=== PATIENT | female | born 1980 | race Caucasian/White ===

== ENCOUNTER 2024-08-05 15:15 | Outpatient (OUT) | payer OTHER, SELFPAY ==
--- NOTE | 2024-08-05 15:28 | XR_ITS ---
The [address] [address] Patient Name: PHYLLIS LAROSE MRN: [id number] date: 1980 Sex: F Assigned Patient Location: [facility] Current Patient Location: Accession/Order Number: [id number] Exam Date: 08/05/2024 15:32 Report Date: 08/06/2024 07:43 At the request of: VALARIE ALCANTAR Procedure: XR pelvis 1-2V PROCEDURE: XR pelvis 1-2V COMPARISON: None. HISTORY: Sacroiliac Joint Disease, Low Back Pain FINDINGS: BONES:No fracture, acute abnormality, or significant arthropathy. Small corticated bone fragment along the superolateral left acetabulum likely represents a remote avulsion. Incomplete fusion of posterior elements of the first lumbar type vertebral body. The sacroiliac joints are normal SOFT TISSUES:Negative. No visible soft tissue swelling. EFFUSION:None visible. OTHER: Negative. XR/XR pelvis 1-2V IMPRESSION: No acute radiographic abnormality Electronically authenticated by: ALFRED PHIPPS Date: 08/06/2024 07:43
== END 2024-08-05 15:16 | disposition home or self-care (01) ==
PROVIDERS: PCP Family Medicine; Visit Provider Family Medicine
DX: M53.3 Sacrococcygeal disorders, not elsewhere classified (principal); M54.50 Low back pain, unspecified
CPT/HCPCS: 72170

== ENCOUNTER 2024-08-11 07:36 | Outpatient (OUT) | payer OTHER, SELFPAY ==
--- OUTSIDE RECORDS SUMMARY | 2024-08-11 07:43 | XMS_ITS | CCD ---
Author Organization [facility] Care Team Providers Care B[employer]ing [employer] Feeder Name Role Phone MD Valarie Segundo Primary Care Provider [phone] MD Frederic Walters Emergency Provider MD Valarie Segundo Primary Care Provider DO Tatiana Moffett Attending Provider Valarie Segundo MD Primary Care Provider [phone] Valarie Segundo Primary Care Unavailable Frederic Walters Admitting Unavailable Frederic Walters Attending Unavailable Tatiana Moffett Admitting Unavailable Tatiana Moffett Attending Unavailable Valarie Segundo Primary Care Unavailable Tatiana Moffett Attending Unavailable Valarie Segundo Primary Care Unavailable Tatiana Moffett Admitting Unavailable TATIANA MOFFETT Attending Unavailable TATIANA MOFFETT Attending Unavailable TATIANA MOFFETT Attending Unavailable VALARIE SEGUNDO Attending Unavailable Medications Current Medications Medication Drug Class(es) Dates Sig (Normalized) Sig (Original) cholecalciferol 0.025 mg oral capsule (2 sources) Vitamin D Start: 10-04-2023 take 1 capsule by mouth once daily Cholecalciferol (Vitamin D3) (Vitamin D3) 25 mcg (1,000 unit) Capsule Active 25 MCG PO Daily October 04, 2023 12:00am ibuprofen 200 mg oral capsule (2 sources) Nonsteroidal Anti-inflammatory Drug Start: 10-04-2023 take 600 mg by mouth every six hours Ibuprofen Active 600 MG PO Q6H October 04, 2023 12:00am levothyroxine sodium 0.125 mg oral tablet (8 sources) l-Thyroxine Start: 12-11-2022 take 1 tablet by mouth in the morning levothyroxine (Synthroid, Levoxyl) 125 MCG tablet Indications: Hypothyroidism, unspecified type (CMS/HCC) TAKE 1 TABLET BY MOUTH IN THE MORNING ON AN EMPTY STOMACH ON SUNDAY, SUNDAY, SUNDAY AND SUNDAY 48 tablet 1 09/05/2023 Active Start: 12-11-2022 take 1 tablet by una th once daily in the morning levothyroxine (Synthroid, Levoxyl) 137 MCG tablet Indications: Hypothyroidism, unspecified type (CMS/HCC) TAKE 1 TABLET BY MOUTH ON AN EMPTY STOMACH EVERY MORNING ON SUNDAY, SUNDAY AND SUNDAY 36 tablet 1 09/05/2023 Active Start: 12-11-2022 Levothyroxine Active MCG TABLET December 11, 2022 12:00am Start: 12-11-2022 Levothyroxine Active MCG TABLET December 11, 2022 12:00am Magnesium (2 sources) Start: 10-04-2023 take 250 mg by mouth once daily Magnesium Active 250 MG PO Daily October 04, 2023 12:00am Multiple Vitamin (multivitamin) capsule (1 source) take 1 capsule by mouth in the morning Multiple Vitamin (multivitamin) capsule Take 1 capsule by mouth in the morning. 0 Active Kuvtiwym-Cet-Sysf-Fa- Vit K-Lut (Multivitamin Women 50 Plus) 8 mg iron-400 mcg-50 mcg Tablet (2 sources) Start: 10-04-2023 take 1 tablet by mouth once daily Hyrbkfyy-Svm-Vnt n-Fa-Vit K-Lut (Multivitamin Women 50 Plus) 8 mg iron-400 mcg-50 mcg Tablet Active 1 TAB PO Daily October 04, 2023 12:00am traMADol hydrochloride 50 mg oral tablet (1 source) Opioid Agonist Start: 10-18-2023 take 50 mg by mouth every four hours Tramadol Active 50 MG PO Q4H 20 7 October 18, 2023 12:00am Vitamin B Complex (2 sources) Start: 10-04-2023 take 1 tablet by mouth once daily Vitamin B Complex Active 1 TAB PO Daily October 04, 2023 12:00am Completed/Discontinued Medications Medication Drug Class(es) Dates Sig (Normalized) Sig (Original) escitalopram 10 mg oral tablet (3 sources) Serotonin Reuptake Inhibitor Start: 12-11-2022 End: 10-04-2023 Escitalopram Oxalate Discontinued MG TABLET December 10, 2022 11:00pm October 04, 2023 9:18am ethinyl estradiol 0.02 mg / norethindrone acetate 1 mg oral tablet (4 sources) Estrogen Start: 07-12-2023 End: 11-05-2023 norethindrone-ethiny l estradiol (Jordin 10/13) 1-20 MG-MCG tablet Indications: General counseling and advice on contraceptive management Take 1 tablet by mouth in the morning. 21 tablet 12 07/12/2023 11/05/2023 Discontinued Start: 12-11-2022 take 0.05 ug by mout h once daily in the morning Norethindrone Ac-Eth Estradiol (Junel 10/13 ()) 1-20 mg-mcg tablet Active 1 TAB PO Every morning December 10, 2022 11:00pm Start: 12-11-2022 Norethindrone Ac-Eth Estradiol (Jordin 10/13 ()) 1-20 mg-mcg tablet Active TAB TABLET December 11, 2022 12:00am ondansetron 4 mg disintegrating oral tablet (3 sources) Serotonin-3 Receptor Antagonist Start: 12-11-2022 End: 10-04-2023 Ondansetron Discontinued 4 MG PO every 6 to 8 hours December 10, 2022 11:00pm October 04, 2023 9:19am Problems Active Problems Problem Classification Problem Date Documented Da te Episodic/Chronic Abdominal pain (3 sources) Abdominal pain; Translations: [Unspecified abdominal pain] Onset: 4 Resolved: 4 10-18-2023 Episodic Anxiety disorders (2 sources) Anxiety; Translations: [Anxiety disorder, unspecified] Onset: 3 05-29-2023 Chronic Asthma (1 source) Exercise-induced asthma; Translations: [Exercise induced bronchospasm] Onset: 3 05-29-2023 Chronic Diseases of white blood cells (4 sources) White blood cell count abnormal; Translations: [Disorder of white blood cells, unspecified] Onset: 6 05-29-2023 Chronic Malaise and fatigue (1 source) Fatigue; Translations: [Chronic fatigue, unspecified] Onset: 3 05-29-2023 Chronic Menstrual disorders (3 sources) Dysmenorrhea; Translations: [Dysmenorrhea, unspecified] Onset: 3 Resolved: 4 11-05-2023 Chronic Nausea and vomiting (4 sources) Vomiting; Translations: [Vomiting, unspecified] Onset: 4 12-11-2022 Episodic Other aftercare (1 source) Surgical follow-up; Translations: [Encounter for other specified surgical aftercare] 11-05-2023 Episodic Other eye disorders (1 source) Vitreous floaters; Translations: [Other vitreous opacities, unspecified eye] Onset: 3 05-29-2023 Chronic Other gastrointestinal disorders (4 sources) Diarrhea; Translations: [Diarrhea, unspecified] Onset: 4 12-11-2022 Episodic Other nervous system disorders (1 source) Other acute postprocedural pain; Translations: [Other acute postprocedural pain] Onset: 4 Episodic Other nutritional; endocrine; and metabolic disorders (1 source) Hypervitaminosis D; 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] Onset: 3 05-29-2023 Chronic Other upper respiratory disease (1 source) Seasonal allergy; Translations: [Other seasonal allergic rhinitis] Onset: 3 05-29-2023 Chronic Thyroid disorders (1 source) Acquired hypothyroidism; Translations: [Hypothyroidism, unspecified] Onset: 3 05-29-2023 Chronic Unclassified (1 source) Encounter for gynecological examination (general) (routine) without abnormal findings; Translations: [Encounter for gynecological examination (general) (routine) without abnormal findings] Onset: 4 Unclassified (1 source) Vomiting, unspecified; Translations: [Vomiting, unspecified] Onset: 3 Past or Other Problems Problem Classification Problem Date Documented Da te Episodic/Chronic Conditions associated with dizziness or vertigo (1 source) Dizziness; Translations: [Dizziness and giddiness] Onset: 05-29-2023 05-29-2023 Episodic Inflammatory diseases of female pelvic organs (1 source) Chronic vulvitis; Translations: [Subacute and chronic vulvitis] Onset: 05-29-2023 05-29-2023 Episodic Malaise and fatigue (1 source) Fatigue; Translations: [Other fatigue] Onset: 05-29-2023 05-29-2023 Episodic Other gastrointestinal disorders (1 source) Diarrhea, unspecified; Translations: [Diarrhea, unspecified] Onset: 12-11-2022 Episodic Other screening for suspected conditions (not mental disorders or infectious disease) (1 source) Mammography abnormal; Translations: [Other abnormal and inconclusive findings on diagnostic imaging of breast] Onset: 05-29-2023 05-29-2023 Episodic Otitis media and related conditions (1 source) Finding of fluid behind tympanic membrane; Translations: [Unspecified nonsuppurative otitis media, bilateral] Onset: 05-29-2023 05-29-2023 Episodic Results Test Name Value Interpretation Reference Range Facility HCG ( test) IA.rapi d Ql (U)Ordered By: Frederic Lopez on 10-18-2023 HCG ( test) Ql (U) Negative [facility] HCG,Urineon 10-18-2023 Beta HCG ( test) Ql (U) Negative Normal [facility] Comment on above: Result Comment: PERF ORMED BY: [place] [address] PATHOLOGIST ELECTRONICS TECHNICIAN APPRENTICE BIRGIT BAER M.D. Performed By: #### U HCG #### [address] Jaden 10-18-2023 L Specimen: [id number] Received: 10/18/23 Status: AMISHA Dee Num: [id number] Spec Type: Surgical Subm Dr: Tatiana Moffett DO Tissues: A Uterus w/ or w/o tubes ovaries except neoplastic or prolap (CERVIX, TUBES) Procedures: HE/12, Gross/Micro L5 Age/ Patient Sex Location Account Attending Physician Phyllis Larose 43/F [place] [id number] Tatiana Moffett DO SPEC NUM: [id number] RECD: 10/18/23 STATUS: KEVINKelly DEE NUM: [id number] ERICA: 10/18/[address]: Tatiana Moffett DO ENTERED: 10/18/[address]: SPEC TYPE: Surgical DEPT: S ORDERED: HE/12, Gross/Micro L5 ORDERED: HE/12, Gross/Micro L5 Pathological Diagnosis Uterus, bilateral fallopian tubes: Hysterectomy and bilateral salpingectomy: Fundus: - Serosal adhesions. - Benign inactive endometrium with no hyperplasia or malignancy or chronic endometritis. - Benign leiomyoma. Cervix: - Benign squamous and endocervical mucosa with patchy chronic inflammation. - Negative for dysplasia. Bilateral fallopian tubes: - Complete cross-sections of unremarkable fallopian tubes. Clinical Information Menorrhagia Gross Description Received in formalin labeled with the patient's name, date of and cervix, uterus, tubes is an 86 g, 8.7 x 5.5 x 5 cm uterus with attached bilateral fallopian tubes. The uterine serosa is connell-brown with dull red-brown foci throughout and white-august plaque-like adhesions along the fundic and anterior aspect. Additionally, along the left lateral posterior aspect is a 0.2 cm white-connell subserosal nodule. The cervix is 3.2 cm in diameter with a dull pink-connell ectocervical mucosa and focal sloughing. There is a 0.6 cm circular os and a discrete transition zone leading into a 3.3 cm long trabeculated endocervical canal. Specimen: [id number] Received: 10/18/23 Status: AMISHA Dee Num: [id number] Spec Type: Surgical Subm Dr: Tatiana Moffett DO Tissues: A Uterus w/ or w/o tubes ovaries except neoplastic or prolap (CERVIX, TUBES) Procedures: , Gross/Micro L5 Patient: Phyllis Larose [id number] (Continued) Specimen: [id number] Received: 10/18/23 (Continued) Gross Description (Continued) Signed (signature on file) Vicki Khanna MD 10/19/23 1133 Specimen: [id number] Received: 10/18/23 Status: AMISHA Dee Num: [id number] Spec Type: Surgical Subm Dr: Tatiana Moffett DO Tissues: A Uterus w/ or w/o tubes ovaries except neoplastic or prolap (CERVIX, TUBES) Procedures: Chalo/Gauri L5 Patient: Phyllis Larose [id number] (Continued) Specimen: [id number] Received: 10/18/23 (Continued) Gross Description (Continued) There is a deep anterior invagination suggestive of an anterior lower uterine segment scar. The endometrial cavity is 2.7 cm cornu to cornu by 4 cm fundus to lower uterine segment. The endometrium is 0.1 cm thick connell and velvety. The myometrium is 2.1 cm thick with a 0.4 cm diameter firm white-connell whorled well-circumscribed intramural nodule within the posterior wall. The right fallopian tube is 4.7 x 0.4 cm. The left fallopian tube is 5.5 x 0.4 cm. Bilaterally, the serosa is purple-connell and glistening. Sectioning demonstrates central lumens. The fimbria are scant, but unremarkable.. Coin Collector sections are submitted in 7 cassettes as follows: A1 - Serosa (posterior cul-de-sac with red-brown foci, subserosal nodule, and august adhesions) A2 - Anterior and posterior cervix A3 - Anterior lower uterine segment scar A4 - Anterior endomyometrium A5 - Posterior endomyometrium with intramural nodule A6 - Right fallopian tube with fimbria entirely submitted A7 - Left fallopian tube with fimbria entirely submitted CPT Codes 97059 Specimen: [id number] Received: 10/18/23 Status: AMISHA Dee Num: [id number] Spec Type: Surgical Subm Dr: Tatiana Moffett,DO Tissues: A Uterus w/ or w/o tubes ovaries except neoplastic or prolap (CERVIX, TUBES) Procedures: , Gross/Micro L5 Patient: LoreePhyllis [id number] (more content not included)... Normal [facility] Activated partial thrombopla stin time (aPTT) in platelet poor plasma by coagulation aOrdered By: Tatiana Moffett on 10-04-2023 aPTT Coag (PPP) [Time] 28.6 s 25.1-36.5 [facility] Comment on above: A hematocrit value g reater than 55% may lead to inaccurate results in coagulation testing. Patients having hematocrit values >55% require a special collection tube for coagulation studies. Please contact the laboratory at [phone] for redraw instructions. Alanine aminotransferase [En zymatic activity/volume] in Serum or PlasmaOrdered By: Tatiana Moffett on 10-04-2023 ALT [Catalytic activity/Vol] 35 U/L 7-[address] [facility] Albumin [Mass/volume] in Ser um or Plasma by Bromocresol green (BCG) dye binding methoOrdered By: Tatiana Moffett on 10-04-2023 Albumin BCG dye [Mass/Vol] 4.4 g/dL 3.5-5.[address] [facility] Alkaline phosphatase [Enzyma tic activity/volume] in Serum or PlasmaOrdered By: Tatiana Moffett on 10-04-2023 ALP [Catalytic activity/Vol] 33 U/L 34-[address] [facility] Aspartate aminotransferase [ Enzymatic activity/volume] in Serum or PlasmaOrdered By: Tatiana Moffett on 10-04-2023 AST [Catalytic activity/Vol] 27 U/L 13-[address] [facility] Basophils Auto (Bld) [#/Vol] Ordered By: Tatiana Moffett on 10-04-2023 Basophils (Bld) [#/Vol] 0.0 10*3/uL 0.0-0.[address] [facility] Basophils/100 WBC Auto (Bld) Ordered By: Tatiana Moffett on 10-04-2023 Basophils/100 WBC (Bld) 0.9 % . [facility] Bilirubin Test strip Ql (U)O rdered By: Tatiana Moffett on 10-04-2023 Bilirubin Ql (U) Negative Negative [facility] Bilirubin.total [Mass/volume ] in Serum or PlasmaOrdered By: Tatiana Moffett on 10-04-2023 Bilirubin [Mass/Vol] 0.6 mg/dL 0.3-1.0 [facility] Calcium [Mass/volume] in Ser um or PlasmaOrdered By: Tatiana Moffett on 10-04-2023 Calcium [Mass/Vol] 9.2 mg/dL 8.6-10.3 [facility] Carbon dioxide, total [Moles /volume] in Serum or PlasmaOrdered By: Tatiana Moffett on 10-04-2023 CO2 [Moles/Vol] 27.8 mmol/L 21.0-31.0 [facility] Chloride [Moles/volume] in S kahlil or PlasmaOrdered By: Tatiana Moffett on 10-04-2023 Chloride [Moles/Vol] 104 mmol/L 98-107 [facility] Color Auto (U)Ordered By: Peggy Moffett on 10-04-2023 Color (U) Yellow Yellow [facility] Complete Blood Count Auto Di ffon 10-04-2023 Basophils (Bld) [#/Vol] 0.0 10*3/uL Normal 0.0-0.[address] [facility] Comment on above: Result Comment: PERF ORMED BY: [facility] [address] [place] [address] PATHOLOGIST ELECTRONICS TECHNICIAN APPRENTICE BIRGIT BAER M.D. Performed By: #### P TT, CBC, PT, CMP #### [address] Basophils/100 WBC (Bld) 0.9 % Normal . [facility] Comment on above: Performed By: #### P TT, CBC, PT, CMP #### [address] Eosinophils (Bld) [#/Vol] 0.1 10*3/uL Normal 0.0-0.[address] [facility] Comment on above: Performed By: #### P TT, CBC, PT, CMP #### [address] Eosinophils/100 WBC (Bld) 2.1 % Normal . [facility] Comment on above: Performed By: #### P TT, CBC, PT, CMP #### [address] Erythrocyte distribution width (RBC) [Ratio] 13.3 % Normal 11.9-15.[address] [facility] Comment on above: Performed By: #### P TT, CBC, PT, CMP #### [address] Hematocrit (Bld) [Volume fraction] 40.0 % Normal 34.0-46.[address] [facility] Comment on above: Performed By: #### P TT, CBC, PT, CMP #### [address] Hemoglobin (Bld) [Mass/Vol] 13.2 g/dL Normal 11.8-15.[address] [facility] Comment on above: Performed By: #### P TT, CBC, PT, CMP #### [address] Lymphocytes (Bld) [#/Vol] 1.3 10*3/uL Normal 1.00-4.[address] [facility] Comment on above: Performed By: #### P TT, CBC, PT, CMP #### [address] Lymphocytes/100 WBC (Bld) 26.1 % Normal . [facility] Comment on above: Performed By: #### P TT, CBC, PT, CMP #### [place] [address] MCH (RBC) [Entitic mass] 28.0 pg Normal 24.7-34.[address] [facility] Comment on above: Performed By: #### P TT, CBC, PT, CMP #### [address] MCV (RBC) [Entitic vol] 84.6 fL Normal 80-[address] [facility] Comment on above: Performed By: #### P TT, CBC, PT, CMP #### [address] Mean Corpuscular HGB Conc 33.1 g/dL Normal 32.0-35.[address] [facility] Comment on above: Performed By: #### P TT, CBC, PT, CMP #### [address] Monocytes (Bld) [#/Vol] 0.5 10*3/uL Normal 0.0-0.[address] [facility] Comment on above: Performed By: #### P TT, CBC, PT, CMP #### [address] Monocytes/100 WBC (Bld) 9.6 % Normal . [facility] Comment on above: Performed By: #### P TT, CBC, PT, CMP #### [address] Neutrophils (Bld) [#/Vol] 3.0 10*3/uL Normal 1.8-7.[address] [facility] Comment on above: Performed By: #### P TT, CBC, PT, CMP #### [address] Neutrophils/100 WBC (Bld) 61.3 % Normal . [facility] Comment on above: Performed By: #### P TT, CBC, PT, CMP #### [address] NRBC% 0.0 /100{WBC} Normal 0-0.[address] [facility] Comment on above: Performed By: #### P TT, CBC, PT, CMP #### [address] Platelet mean volume (Bld) [Entitic vol] 7.8 fL Normal 6.3-10.[address] [facility] Comment on above: Performed By: #### P TT, CBC, PT, CMP #### [address] Platelets (Bld) [#/Vol] 271 10*3/uL Normal 150-[address] [facility] Comment on above: Performed By: #### P TT, CBC, PT, CMP #### [address] RBC (Bld) [#/Vol] 4.72 10*6/uL Normal 3.60-5.00 [facility] Comment on above: Performed By: #### P TT, CBC, PT, CMP #### [address] WBC (Bld) [#/Vol] 4.9 10*3/uL Normal 3.8-11.6 [facility] Comment on above: Performed By: #### P TT, CBC, PT, CMP #### [address] Comprehensive Metabolic Pane jaden 10-04-2023 Albumin [Mass/Vol] 4.4 g/dL Normal 3.5-5.7 [facility] Comment on above: Performed By: #### P TT, CBC, PT, CMP #### [address] Albumin/Globulin [Mass ratio] 1.6 {ratio} Normal [facility] Comment on above: Performed By: #### P TT, CBC, PT, CMP #### [address] ALP [Catalytic activity/Vol] 33 U/L Low 34-[address] [facility] Comment on above: Result Comment: PERF ORMED BY: [place] [address] PATHOLOGIST ELECTRONICS TECHNICIAN APPRENTICE BIRGIT BAER M.D. Performed By: #### P TT, CBC, PT, CMP #### [facility] [address] ALT [Catalytic activity/Vol] 35 U/L Normal 7-[address] [facility] Comment on above: Performed By: #### P TT, CBC, PT, CMP #### [facility] [address] Anion gap [Moles/Vol] 10.8 mmol/L Normal 6.0-15.0 [facility] Comment on above: Performed By: #### P TT, CBC, PT, CMP #### [address] AST [Catalytic activity/Vol] 27 U/L Normal 13-[address] [facility] Comment on above: Performed By: #### P TT, CBC, PT, CMP #### [address] Bilirubin [Mass/Vol] 0.6 mg/dL Normal 0.3-1.0 [facility] Comment on above: Performed By: #### P TT, CBC, PT, CMP #### [address] Calcium [Mass/Vol] 9.2 mg/dL Normal 8.6-10.3 [facility] Comment on above: Performed By: #### P TT, CBC, PT, CMP #### [place] [address] [place] Chloride [Moles/Vol] 104 mmol/L Normal 98-107 [facility] Comment on above: Performed By: #### P TT, CBC, PT, CMP #### [place] [address] [place] CO2 [Moles/Vol] 27.8 mmol/L Normal 21.0-31.0 [facility] Comment on above: Performed By: #### P TT, CBC, PT, CMP #### [place] [address] [place] Creatinine [Mass/Vol] 0.86 mg/dL Normal 0.60-1.20 [facility] Comment on above: Performed By: #### P TT, CBC, PT, CMP #### [facility] [address] [place] [address] [place] GFR/1.73 sq M.predicted MDRD (S/P/Bld) [Vol rate/Area] mL/min/{1.73_m2} [facility] Comment on above: Performed By: #### P TT, CBC, PT, CMP #### [facility] [address] [place] [address] [place] Globulin (S) [Mass/Vol] 2.8 g/dL Normal [facility] Comment on above: Performed By: #### P TT, CBC, PT, CMP #### [address] Glucose [Mass/Vol] 77 mg/dL Normal 70-100 [facility] Comment on above: Result Comment: [place] Glucose Reference Range is dependent on time and content of last meal. Glucose of more than 200 mg/dL in a nonstressed, ambulatory subject supports the diagnosis of Diabetes Mellitus. ADA recommended reference range Performed By: #### P TT, CBC, PT, CMP #### [place] [address] [place] Potassium [Moles/Vol] 4.6 mmol/L Normal 3.5-5.1 [facility] Comment on above: Performed By: #### P TT, CBC, PT, CMP #### [place] [address] [place] Protein [Mass/Vol] 7.2 g/dL Normal 6.4-8.9 [facility] Comment on above: Performed By: #### P TT, CBC, PT, CMP #### [place] [address] [place] Sodium [Moles/Vol] 138 mmol/L Normal 136-145 [facility] Comment on above: Performed By: #### P TT, CBC, PT, CMP #### [address] [address] [place] Urea nitrogen [Mass/Vol] 10 mg/dL Normal 7-[address] [facility] Comment on above: Performed By: #### P TT, CBC, PT, CMP #### [facility] [address] Creatinine [Mass/volume] in Serum or PlasmaOrdered By: Tatiana Moffett on 10-04-2023 Creatinine [Mass/Vol] 0.86 mg/dL 0.60-1.20 [facility] Eosinophils Auto (Bld) [#/Vo l]Ordered By: Tatiana Moffett on 10-04-2023 Eosinophils (Bld) [#/Vol] 0.1 10*3/uL 0.0-0.[address] [facility] Eosinophils/100 WBC Auto (Bl d)Ordered By: Tatiana Moffett on 10-04-2023 Eosinophils/100 WBC (Bld) 2.1 % . [facility] Erythrocyte distribution wid th Auto (RBC) [Ratio]Ordered By: Tatiana Moffett on 10-04-2023 Erythrocyte distribution width (RBC) [Ratio] 13.3 % 11.9-15.[address] [facility] Globulin Calc (S) [Mass/Vol] Ordered By: Tatiana Moffett on 10-04-2023 Globulin (S) [Mass/Vol] 2.8 g/dL [facility] Glucose [Mass/volume] in Ser um or PlasmaOrdered By: Tatiana Moffett on 10-04-2023 Glucose [Mass/Vol] 77 mg/dL 70-100 [facility] Comment on above: ADA recommended refe rence rangeRandom Glucose Reference Range is dependent on time and content of last meal. Glucose of more than 200 mg/dL in a nonstressed, ambulatory subject supports the diagnosis of Diabetes Mellitus. Hematocrit Auto (Bld) [Volum e fraction]Ordered By: Tatiana Moffett on 10-04-2023 Hematocrit (Bld) [Volume fraction] 40.0 % 34.0-46.[address] [facility] Hemoglobin [Mass/volume] in BloodOrdered By: Tatiana Moffett on 10-04-2023 Hemoglobin (Bld) [Mass/Vol] 13.2 g/dL 11.8-15.[address] [facility] INR in Platelet poor plasma by Coagulation assayOrdered By: Tatiana Moffett on 10-04-2023 INR Coag (PPP) [Relative time] 1.0 {INR} [facility] Comment on above: INR Therapeutic Rang e A) Pre- and Peroperative OAT started two weeks before surgery. NOT HIP SURGERY: 1.5 - 2.5 HIP SURGERY: 2 - 3B) Primary and secondary prevention of venous THROMBOSIS: 2 - 3C) Active venous thrombosis, pulmonary embolismand prevention of recurrent venous thrombosis: 2 - 3D) Prevention of arterial thromboembolismincluding patients with mechanical heart valves: 3 - 4.5 Ketones Auto test strip (U) [Mass/Vol]Ordered By: Tatiana Moffett on 10-04-2023 Ketones (U) [Mass/Vol] Negative Negative Fi [facility] Leukocytes [#/volume] correc elham for nucleated erythrocytes in Blood by Automated counOrdered By: Tatiana Moffett on 10-04-2023 WBC corrected for nucl RBC Auto (Bld) [#/Vol] 4.9 10*3/uL 3.8-11.[address] [facility] Lymphocytes Auto (Bld) [#/Vo l]Ordered By: Tatiana Moffett on 10-04-2023 Lymphocytes (Bld) [#/Vol] 1.3 10*3/uL 1.00-4.[address] [facility] Lymphocytes/100 WBC Auto (Bl d)Ordered By: Tatiana Moffett on 10-04-2023 Lymphocytes/100 WBC (Bld) 26.1 % . [facility] MCH Auto (RBC) [Entitic mass ]Ordered By: Tatiana Moffett on 10-04-2023 MCH (RBC) [Entitic mass] 28.0 pg 24.7-34.[address] [facility] MCHC Auto (RBC) [Mass/Vol]Or dered By: Tatiana Moffett on 10-04-2023 MCHC (RBC) [Mass/Vol] 33.1 g/dL 32.0-35.0 [facility] MCV Auto (RBC) [Entitic vol] Ordered By: Tatiana Moffett on 10-04-2023 MCV (RBC) [Entitic vol] 84.6 fL 80-[address] [facility] Monocytes Auto (Bld) [#/Vol] Ordered By: Tatiana Moffett on 10-04-2023 Monocytes (Bld) [#/Vol] 0.5 10*3/uL 0.0-0.[address] [facility] Monocytes/100 WBC Auto (Bld) Ordered By: Tatiana Moffett on 10-04-2023 Monocytes/100 WBC (Bld) 9.6 % . [facility] Neutrophils Auto (Bld) [#/Vo l]Ordered By: Tatiana Moffett on 10-04-2023 Neutrophils (Bld) [#/Vol] 3.0 10*3/uL 1.8-7.[address] [facility] Neutrophils/100 WBC Auto (Bl d)Ordered By: Tatiana Moffett on 10-04-2023 Neutrophils/100 WBC (Bld) 61.3 % . [facility] Nitrite Test strip Ql (U)Ord ered By: Tatiana Moffett on 10-04-2023 Nitrite Ql (U) Negative Negative [facility] No Panel InformationOrdered By: Tatiana Moffett on 10-04-2023 Estimated GFR (CKD-EPI) > 60.0 mL/Min [facility] Creatinine Clearance (Chem N/A [facility] Nucleated erythrocytes [Pres ence] in Blood by Automated countOrdered By: Tatiana Moffett on 10-04-2023 Nucleated RBC Auto Ql (Bld) 0.0 /100{WBC} 0-0.[address] [facility] PST Type and Screenon 2023 ABO and Rh group Nom (Bld) Blood group A Rh(D) negative Normal [facility] Comment on above: Order Comment: Date of Surgery: [id number] Result Comment: PERF ORMED BY: [facility] [address] [address] PATHOLOGIST ELECTRONICS TECHNICIAN APPRENTICE BIRGIT BAER M.D. Partial Thromboplastin Timeo n 10-04-2023 aPTT Coag (Bld) [Time] 28.6 s Normal 25.1-36.5 [facility] Comment on above: Result Comment: A he matocrit value greater than 55% may lead to inaccurate results in coagulation testing. Patients having hematocrit values >55% require a special collection tube for coagulation studies. Please contact the laboratory at [phone] for redraw instructions. PERFORMED BY: [place] [address] PATHOLOGIST ELECTRONICS TECHNICIAN APPRENTICE BIRGIT BAER M.D. Performed By: #### P TT, CBC, PT, CMP #### [facility] [address] Platelet mean volume Auto (B ld) [Entitic vol]Ordered By: Tatiana Moffett on 10-04-2023 Platelet mean volume (Bld) [Entitic vol] 7.8 fL 6.3-10.[address] [facility] Platelets Auto (Bld) [#/Vol] Ordered By: Tatiana Moffett on 10-04-2023 Platelets (Bld) [#/Vol] 271 10*3/uL 150-[address] [facility] Potassium [Moles/volume] in Serum or PlasmaOrdered By: Tatiana Moffett on 10-04-2023 Potassium [Moles/Vol] 4.6 mmol/L 3.5-5.1 [facility] Protein Auto test strip (U) [Mass/Vol]Ordered By: Tatiana Moffett on 10-04-2023 Protein (U) [Mass/Vol] Negative Negative [facility] Protein [Mass/volume] in Ser um or PlasmaOrdered By: Tatiana Moffett on 10-04-2023 Protein [Mass/Vol] 7.2 g/dL 6.4-8.9 [facility] Prothrombin Time INRon 10-04 INR Coag (PPP) [Relative time] 1.0 {INR} Normal [facility] Comment on above: Result Comment: INR Therapeutic Range A) Pre- and Peroperative OAT started two weeks before surgery. NOT HIP SURGERY: 1.5 - 2.5 HIP SURGERY: 2 - 3 B) Primary and secondary prevention of venous THROMBOSIS: 2 - 3 C) Active venous thrombosis, pulmonary embolism and prevention of recurrent venous thrombosis: 2 - 3 D) Prevention of arterial thromboembolism including patients with mechanical heart valves: 3 - 4.5 Performed By: #### P TT, CBC, PT, CMP #### [facility] [address] [place], [place] [id number] [facility] PT Coag (PPP) [Time] 11.4 s Normal 9.0-12.9 [facility] Comment on above: Result Comment: A he matocrit value greater than 55% may lead to inaccurate results in coagulation testing. Patients having hematocrit values >55% require a special collection tube for coagulation studies. Please contact the laboratory at [phone] for redraw instructions. Performed By: #### P TT, CBC, PT, CMP #### [facility] [address] Prothrombin time (PT)Ordered By: Tataina Moffett on 10-04-2023 PT Coag (PPP) [Time] 11.4 s 9.0-12.9 [facility] Comment on above: A hematocrit value g reater than 55% may lead to inaccurate results in coagulation testing. Patients having hematocrit values >55% require a special collection tube for coagulation studies. Please contact the laboratory at [phone] for redraw instructions. RBC Auto (Bld) [#/Vol]Ordere d By: Tatiana Moffett on 10-04-2023 RBC (Bld) [#/Vol] 4.72 10*6/uL 3.60-5.00 [facility] Serum or plasma albumin/glob ulin mass ratioOrdered By: Tatiana Moffett on 10-04-2023 Albumin/Globulin [Mass ratio] 1.6 {ratio} [facility] Serum or plasma anion gap de terminationOrdered By: Tatiana Moffett on 10-04-2023 Anion gap [Moles/Vol] 10.8 mmol/L 6.0-15.0 [facility] Sodium [Moles/volume] in Ser um or PlasmaOrdered By: Tatiana Moffett on 10-04-2023 Sodium [Moles/Vol] 138 mmol/L 136-145 [facility] Specific gravity Auto test s trip (U) [Rel density]Ordered By: Tatiana Moffett on 10-04-2023 Specific gravity (U) [Rel density] 1.006 1.001-1.[address] [facility] Urea nitrogen [Mass/volume] in Serum or PlasmaOrdered By: Tatiana Moffett on 10-04-2023 Urea nitrogen [Mass/Vol] 10 mg/dL 7-[address] [facility] Urinalysison 10-04-2023 Appearance (U) Clear Normal Clear [facility] Comment on above: Order Comment: Name Collection Type:: Clean-Voided Midstream Performed By: #### U A #### [facility] [address] [place] [address] [place] Bilirubin,Urine Negative Normal Negative [facility] Comment on above: Order Comment: Name Collection Type:: Clean-Voided Midstream Performed By: #### U A #### [facility] [address] [place] [address] [place] Color (U) Yellow Normal Yellow [facility] Comment on above: Order Comment: Name Collection Type:: Clean-Voided Midstream Performed By: #### U A #### [facility] [address] [place] [address] [place] Glucose Ql (U) Normal Normal Normal [facility] Comment on above: Order Comment: Name Collection Type:: Clean-Voided Midstream Performed By: #### U A #### [facility] [address] [place] [address] [place] Ketones Ql (U) Negative Normal Negative [facility] Comment on above: Order Comment: Name Collection Type:: Clean-Voided Midstream Performed By: #### U A #### [facility] [address] [place] [address] Leukocyte esterase Test strip Ql (U) Negative Normal Negative [facility] Comment on above: Order Comment: Name Collection Type:: Clean-Voided Midstream Performed By: #### U A #### [facility] [address] [place] [address] [place] Nitrite,Urine Negative Normal Negative [facility] Comment on above: Order Comment: Name Collection Type:: Clean-Voided Midstream Performed By: #### U A #### [facility] [address] [place] [address] [place] Occult Blood,Urine Negative Normal Negative [facility] Comment on above: Order Comment: Name Collection Type:: Clean-Voided Midstream Result Comment: PERF ORMED BY: [place] [address] PATHOLOGIST ELECTRONICS TECHNICIAN APPRENTICE BIRGIT BAER M.D. Performed By: #### U A #### [facility] [address] pH (U) 7.0 [pH] Normal 5.0-9.[address] [facility] Comment on above: Order Comment: Name Collection Type:: Clean-Voided Midstream Performed By: #### U A #### [facility] [address] [place] [address] Protein,Urine Negative Normal Negative [facility] Comment on above: Order Comment: Name Collection Type:: Clean-Voided Midstream Performed By: #### U A #### [address] Specificy [place],Urine 1.006 Normal 1.001-1.[address] [facility] Comment on above: Order Comment: Name Collection Type:: Clean-Voided Midstream Performed By: #### U A #### [facility] [address] [place] [address] Urobilinogen,Urine Normal Normal Normal [facility] Comment on above: Order Comment: Name Collection Type:: Clean-Voided Midstream Performed By: #### U A #### [facility] [address] [place] [address] Urine clarity by refractomet ry automatedOrdered By: Tatiana Moffett on 10-04-2023 Clarity Refractometry automated (U) Clear Clear [facility] Urine glucose measurement by automated test strip (mass/volume)Ordered By: Tatiana Moffett on 10-04-2023 Glucose Auto test strip (U) [Mass/Vol] Normal mg/dL Normal [facility] Urine hemoglobin detection b y automated test stripOrdered By: Tatiana Moffett on 10-04-2023 Hemoglobin Auto test strip Ql (U) Negative Negative [facility] Urine leukocyte esterase det ection by automated test stripOrdered By: Tatiana Moffett on 10-04-2023 Leukocyte esterase Auto test strip Ql (U) Negative Negative [facility] Urobilinogen Auto test strip (U) [Mass/Vol]Ordered By: Tatiana Moffett on 10-04-2023 Urobilinogen (U) [Mass/Vol] Normal mg/dL Normal [facility] WBC Auto (Bld) [#/Vol]Ordere d By: Tatiana Moffett on 10-04-2023 WBC (Bld) [#/Vol] 4.9 10*3/uL 3.8-11.6 [facility] pH Auto test strip (U)Ordere d By: Tatiana Moffett on 10-04-2023 pH (U) 7.0 [pH] 5.0-9.[address] [facility] Alanine aminotransferase [En zymatic activity/volume] in Serum or PlasmaOrdered By: Frederic Walters on 12-11-2022 ALT [Catalytic activity/Vol] 29 U/L 7-[address] [facility] Albumin [Mass/volume] in Ser um or Plasma by Bromocresol green (BCG) dye binding methoOrdered By: Frederic Walters on 12-11-2022 Albumin BCG dye [Mass/Vol] 4.4 g/dL 3.5-5.[address] [facility] Alkaline phosphatase [Enzyma tic activity/volume] in Serum or PlasmaOrdered By: Frederic Walters on 12-11-2022 ALP [Catalytic activity/Vol] 33 U/L 34-[address] [facility] Aspartate aminotransferase [ Enzymatic activity/volume] in Serum or PlasmaOrdered By: Frederic Walters on 12-11-2022 AST [Catalytic activity/Vol] 22 U/L 13-[address] [facility] Basic Metabolic Panelon 11-23 Anion gap [Moles/Vol] 13.7 mmol/L Normal 6.0-15.0 [facility] Comment on above: Performed By: #### L IPASE, CBC, BMP, HEPATIC ####[facility] [id number] [place] [address] [facility] Calcium [Mass/Vol] 8.7 mg/dL Normal 8.6-10.3 [facility] Comment on above: Performed By: #### L IPASE, CBC, BMP, HEPATIC ####[facility] [id number] [place] [address] [facility] Chloride [Moles/Vol] 106 mmol/L Normal 98-107 [facility] Comment on above: Performed By: #### L IPASE, CBC, BMP, HEPATIC ####[facility] [id number] [place] [address] [facility] CO2 [Moles/Vol] 22.5 mmol/L Normal 21.0-31.0 [facility] Comment on above: Performed By: #### L IPASE, CBC, BMP, HEPATIC ####[facility] [place] [address] [facility] Creatinine [Mass/Vol] 0.96 mg/dL Normal 0.60-1.20 [facility] Comment on above: Performed By: #### L IPASE, CBC, BMP, HEPATIC ####[place] [address] [place] [address] [place] Creatinine Clr Calc Pharmacy 77.03 [facility] Comment on above: Performed By: #### L IPASE, CBC, BMP, HEPATIC ####[place] [address] [place] [address] [facility] GFR/1.73 sq M.predicted MDRD (S/P/Bld) [Vol rate/Area] mL/min/{1.73_m2} [facility] Comment on above: Performed By: #### L IPASE, CBC, BMP, HEPATIC ####[place] [address] [place] [address] [facility] Glucose [Mass/Vol] 129 mg/dL High 74-109 [facility] Comment on above: Result Comment: [place] Glucose Reference Range is dependent on time and content of last meal. Glucose of more than 200 mg/dL in a nonstressed, ambulatory subject supports the diagnosis of Diabetes Mellitus. ADA recommended reference range Performed By: #### L IPASE, CBC, BMP, HEPATIC ####[place] [place] [address] [place] Potassium [Moles/Vol] 4.2 mmol/L Normal 3.5-5.1 [facility] Comment on above: Performed By: #### L IPASE, CBC, BMP, HEPATIC ####[facility] [place] [address] [place] Sodium [Moles/Vol] 138 mmol/L Normal 136-145 [facility] Comment on above: Performed By: #### L IPASE, CBC, BMP, HEPATIC ####[facility] [id number] [place] [id number] [facility] Urea nitrogen [Mass/Vol] 14 mg/dL Normal 7-[address] [facility] Comment on above: Performed By: #### L IPASE, CBC, BMP, HEPATIC ####[facility] [id number] [place] [id number] [facility] Basophils Auto (Bld) [#/Vol] Ordered By: Frederic Walters on 12-11-2022 Basophils (Bld) [#/Vol] 0.0 10*3/uL 0.0-0.[address] [facility] Basophils/100 WBC Auto (Bld) Ordered By: Frederic Walters on 12-11-2022 Basophils/100 WBC (Bld) 0.7 % . [facility] Bilirubin.direct [Mass/volum e] in Serum or PlasmaOrdered By: Frederic Walters on 12-11-2022 Bilirubin.direct [Mass/Vol] 0.10 mg/dL 0.03-0.[address] [facility] Bilirubin.total [Mass/volume ] in Serum or PlasmaOrdered By: Frederic Walters on 12-11-2022 Bilirubin [Mass/Vol] 1.0 mg/dL 0.3-1.0 [facility] Calcium [Mass/volume] in Ser um or PlasmaOrdered By: Frederic Walters on 12-11-2022 Calcium [Mass/Vol] 8.7 mg/dL 8.6-10.3 [facility] Carbon dioxide, total [Moles /volume] in Serum or PlasmaOrdered By: Frederic Walters on 12-11-2022 CO2 [Moles/Vol] 22.5 mmol/L 21.0-31.0 [facility] Chloride [Moles/volume] in S kahlil or PlasmaOrdered By: Frederic Walters on 12-11-2022 Chloride [Moles/Vol] 106 mmol/L 98-107 [facility] Complete Blood Count Auto Di ffon 12-11-2022 Basophils (Bld) [#/Vol] 0.0 10*3/uL Normal 0.0-0.[address] [facility] Comment on above: Result Comment: PERF ORMED BY: [place] [address] PATHOLOGIST ELECTRONICS TECHNICIAN APPRENTICE BIRGIT BAER M.D. Performed By: #### L IPASE, CBC, BMP, HEPATIC #### [address] Basophils/100 WBC (Bld) 0.7 % Normal . [facility] Comment on above: Performed By: #### L IPASE, CBC, BMP, HEPATIC #### [address] Eosinophils (Bld) [#/Vol] 0.0 10*3/uL Normal 0.0-0.[address] [facility] Comment on above: Performed By: #### L IPASE, CBC, BMP, HEPATIC #### [address] Eosinophils/100 WBC (Bld) 0.1 % Normal . [facility] Comment on above: Performed By: #### L IPASE, CBC, BMP, HEPATIC #### [address] Erythrocyte distribution width (RBC) [Ratio] 13.4 % Normal 11.9-15.[address] [facility] Comment on above: Performed By: #### L IPASE, CBC, BMP, HEPATIC #### [address] Hematocrit (Bld) [Volume fraction] 44.5 % Normal 34.0-46.[address] [facility] Comment on above: Performed By: #### L IPASE, CBC, BMP, HEPATIC #### [address] Hemoglobin (Bld) [Mass/Vol] 14.8 g/dL Normal 11.8-15.[address] [facility] Comment on above: Performed By: #### L IPASE, CBC, BMP, HEPATIC #### [address] Lymphocytes (Bld) [#/Vol] 0.1 10*3/uL Low 1.00-4.[address] [facility] Comment on above: Performed By: #### L IPASE, CBC, BMP, HEPATIC #### [address] Lymphocytes/100 WBC (Bld) 1.9 % Normal . [facility] Comment on above: Performed By: #### L IPASE, CBC, BMP, HEPATIC #### [address] MCH (RBC) [Entitic mass] 28.4 pg Normal 24.7-34.[address] [facility] Comment on above: Performed By: #### L IPASE, CBC, BMP, HEPATIC #### [address] MCV (RBC) [Entitic vol] 85.3 fL Normal 80-[address] [facility] Comment on above: Performed By: #### L IPASE, CBC, BMP, HEPATIC #### [address] Mean Corpuscular HGB Conc 33.3 g/dL Normal 32.0-35.[address] [facility] Comment on above: Performed By: #### L IPASE, CBC, BMP, HEPATIC #### [address] Monocytes (Bld) [#/Vol] 0.2 10*3/uL Normal 0.0-0.[address] [facility] Comment on above: Performed By: #### L IPASE, CBC, BMP, HEPATIC #### [place] [address] [place] Monocytes/100 WBC (Bld) 22.55 % High 0.00-20.[address] [facility] Comment on above: Result Comment: For adults in ED, MDW > 20.0 may be associated with a higher risk of sepsis during the first 12 hrs of hospital admission Performed By: #### L IPASE, CBC, BMP, HEPATIC #### [place] [address] [place] Monocytes/100 WBC (Bld) 4.7 % Normal . [facility] Comment on above: Performed By: #### L IPASE, CBC, BMP, HEPATIC #### [facility] [address] Neutrophils (Bld) [#/Vol] 3.7 10*3/uL Normal 1.8-7.[address] [facility] Comment on above: Performed By: #### L IPASE, CBC, BMP, HEPATIC #### [address] Neutrophils/100 WBC (Bld) 92.6 % Normal . [facility] Comment on above: Performed By: #### L IPASE, CBC, BMP, HEPATIC #### [facility] [address] [place] [address] NRBC% 0.0 /100{WBC} Normal 0-0.[address] [facility] Comment on above: Performed By: #### L IPASE, CBC, BMP, HEPATIC #### [address] Platelet mean volume (Bld) [Entitic vol] 8.0 fL Normal 6.3-10.[address] [facility] Comment on above: Performed By: #### L IPASE, CBC, BMP, HEPATIC #### [place] [address] [place] Platelets (Bld) [#/Vol] 196 10*3/uL Normal 150-[address] [facility] Comment on above: Performed By: #### L IPASE, CBC, BMP, HEPATIC #### [address] RBC (Bld) [#/Vol] 5.22 10*6/uL High 3.60-5.00 [facility] Comment on above: Performed By: #### L IPASE, CBC, BMP, HEPATIC #### [place] [address] [place] WBC (Bld) [#/Vol] 4.0 10*3/uL Normal 3.8-11.6 [facility] Comment on above: Performed By: #### L IPASE, CBC, BMP, HEPATIC #### [place] [address] [place] Creatinine [Mass/volume] in Serum or PlasmaOrdered By: Frederic Walters on 12-11-2022 Creatinine [Mass/Vol] 0.96 mg/dL 0.60-1.20 [facility] Eosinophils Auto (Bld) [#/Vo l]Ordered By: Frederic Walters on 12-11-2022 Eosinophils (Bld) [#/Vol] 0.0 10*3/uL 0.0-0.[address] [facility] Eosinophils/100 WBC Auto (Bl d)Ordered By: Frederic Walters on 12-11-2022 Eosinophils/100 WBC (Bld) 0.1 % . [facility] Erythrocyte distribution wid th Auto (RBC) [Ratio]Ordered By: Frederic Walters on 12-11-2022 Erythrocyte distribution width (RBC) [Ratio] 13.4 % 11.9-15.[address] [facility] Globulin Calc (S) [Mass/Vol] Ordered By: Frederic Walters on 12-11-2022 Globulin (S) [Mass/Vol] 2.7 g/dL [facility] Glucose [Mass/volume] in Ser um or PlasmaOrdered By: Frederic Walters on 12-11-2022 Glucose [Mass/Vol] 129 mg/dL 74-109 [facility] Comment on above: ADA recommended refe rence rangeRandom Glucose Reference Range is dependent on time and content of last meal. Glucose of more than 200 mg/dL in a nonstressed, ambulatory subject supports the diagnosis of Diabetes Mellitus. Hematocrit Auto (Bld) [Volum e fraction]Ordered By: Frederic Walters on 12-11-2022 Hematocrit (Bld) [Volume fraction] 44.5 % 34.0-46.[address] [facility] Hemoglobin [Mass/volume] in BloodOrdered By: Frederic Walters on 12-11-2022 Hemoglobin (Bld) [Mass/Vol] 14.8 g/dL 11.8-15.[address] [facility] Hepatic Panelon 12-11-2022 Albumin [Mass/Vol] 4.4 g/dL Normal 3.5-5.7 [facility] Comment on above: Performed By: #### L IPASE, CBC, BMP, HEPATIC ####[facility] [id number] [place] [address] [facility] Albumin/Globulin [Mass ratio] 1.6 {ratio} Normal [facility] Comment on above: Performed By: #### L IPASE, CBC, BMP, HEPATIC ####[place] [address] ALP [Catalytic activity/Vol] 33 U/L Low 34-[address] [facility] Comment on above: Performed By: #### L IPASE, CBC, BMP, HEPATIC ####[place] [id number] [facility] ALT [Catalytic activity/Vol] 29 U/L Normal 7-[address] [facility] Comment on above: Performed By: #### L IPASE, CBC, BMP, HEPATIC ####[address] AST [Catalytic activity/Vol] 22 U/L Normal 13-[address] [facility] Comment on above: Performed By: #### L IPASE, CBC, BMP, HEPATIC ####[address] Bilirubin [Mass/Vol] 1.0 mg/dL Normal 0.3-1.0 [facility] Comment on above: Performed By: #### L IPASE, CBC, BMP, HEPATIC ####[address] Bilirubin,Indirect 0.9 mg/dL Normal [facility] Comment on above: Performed By: #### L IPASE, CBC, BMP, HEPATIC ####[address] Bilirubin.indirect [Mass/Vol] 0.10 mg/dL Normal 0.03-0.[address] [facility] Comment on above: Performed By: #### L IPASE, CBC, BMP, HEPATIC ####[address] Globulin (S) [Mass/Vol] 2.7 g/dL Normal [facility] Comment on above: Performed By: #### L IPASE, CBC, BMP, HEPATIC ####[place] [address] [facility] Protein [Mass/Vol] 7.1 g/dL Normal 6.4-8.9 [facility] Comment on above: Performed By: #### L IPASE, CBC, BMP, HEPATIC ####[facility] Laboratory - Chemistry and C hemistry - challengeOrdered By: Frederic Walters on 12-11-2022 GFR/1.73 sq M.predicted MDRD (S/P/Bld) [Vol rate/Area] mL/min/{1.73_m2} [facility] Leukocytes [#/volume] correc elham for nucleated erythrocytes in Blood by Automated counOrdered By: Frederic Walters on 12-11-2022 WBC corrected for nucl RBC Auto (Bld) [#/Vol] 4.0 10*3/uL 3.8-11.[address] [facility] Lipaseon 12-11-2022 Lipase [Catalytic activity/Vol] 11.0 U/L Normal 11.0-82.[address] [facility] Comment on above: Result Comment: PERF ORMED BY: [facility] [address] [place] [address] PATHOLOGIST ELECTRONICS TECHNICIAN APPRENTICE BIRGIT BAER M.D. Performed By: #### L IPASE, CBC, BMP, HEPATIC ####[place] [address] [place] [id number] [facility] Lipase [Enzymatic activity/v olume] in Serum or PlasmaOrdered By: Frederic Walters on 12-11-2022 Lipase [Catalytic activity/Vol] 11.0 U/L 11.0-82.[address] [facility] Lymphocytes Auto (Bld) [#/Vo l]Ordered By: Frederic Walters on 12-11-2022 Lymphocytes (Bld) [#/Vol] 0.1 10*3/uL 1.00-4.[address] [facility] Lymphocytes/100 WBC Auto (Bl d)Ordered By: Frederic Walters on 12-11-2022 Lymphocytes/100 WBC (Bld) 1.9 % . [facility] MCH Auto (RBC) [Entitic mass ]Ordered By: Frederic Walters on 12-11-2022 MCH (RBC) [Entitic mass] 28.4 pg 24.7-34.[address] [facility] MCHC Auto (RBC) [Mass/Vol]Or dered By: Frederic Walters on 12-11-2022 MCHC (RBC) [Mass/Vol] 33.3 g/dL 32.0-35.0 [facility] MCV Auto (RBC) [Entitic vol] Ordered By: Frederic Walters on 12-11-2022 MCV (RBC) [Entitic vol] 85.3 fL 80-[address] [facility] Monocyte distribution width [Entitic volume] in Blood by AutomatedOrdered By: Frederic Walters on 12-11-2022 Monocyte distribution width Auto (Bld) [Entitic vol] 22.55 % 0.00-20.[address] [facility] Comment on above: For adults in ED, MD W > 20.0 may be associated with a higher risk of sepsis during the first 12 hrs of hospital admission Monocytes Auto (Bld) [#/Vol] Ordered By: Frederic Walters on 12-11-2022 Monocytes (Bld) [#/Vol] 0.2 10*3/uL 0.0-0.[address] [facility] Monocytes/100 WBC Auto (Bld) Ordered By: Frederic Walters on 12-11-2022 Monocytes/100 WBC (Bld) 4.7 % . [facility] Neutrophils Auto (Bld) [#/Vo l]Ordered By: Frederic Walters on 12-11-2022 Neutrophils (Bld) [#/Vol] 3.7 10*3/uL 1.8-7.[address] [facility] Neutrophils/100 WBC Auto (Bl d)Ordered By: Frederic Walters on 12-11-2022 Neutrophils/100 WBC (Bld) 92.6 % . [facility] No Panel InformationOrdered By: Frederic Walters on 12-11-2022 Pharmacy Creatinine Clearance (Chem 77.[address] [facility] Nucleated erythrocytes [Pres ence] in Blood by Automated countOrdered By: Frederic Walters on 12-11-2022 Nucleated RBC Auto Ql (Bld) 0.0 /100{WBC} 0-0.[address] [facility] Platelet mean volume Auto (B ld) [Entitic vol]Ordered By: Frederic Walters on 12-11-2022 Platelet mean volume (Bld) [Entitic vol] 8.0 fL 6.3-10.[address] [facility] Platelets Auto (Bld) [#/Vol] Ordered By: Frederic Walters on 12-11-2022 Platelets (Bld) [#/Vol] 196 10*3/uL 150-[address] [facility] Potassium [Moles/volume] in Serum or PlasmaOrdered By: Frederic Walters on 12-11-2022 Potassium [Moles/Vol] 4.2 mmol/L 3.5-5.1 [facility] Protein [Mass/volume] in Ser um or PlasmaOrdered By: Frederic Walters on 12-11-2022 Protein [Mass/Vol] 7.1 g/dL 6.4-8.9 [facility] RBC Auto (Bld) [#/Vol]Ordere d By: Frederic Walters on 12-11-2022 RBC (Bld) [#/Vol] 5.22 10*6/uL 3.60-5.00 [facility] Serum or plasma albumin/glob ulin mass ratioOrdered By: Frederic Walters on 12-11-2022 Albumin/Globulin [Mass ratio] 1.6 {ratio} [facility] Serum or plasma anion gap de terminationOrdered By: Frederic Walters on 12-11-2022 Anion gap [Moles/Vol] 13.7 mmol/L 6.0-15.0 [facility] Serum or plasma non-glucuron idated bilirubin measurement (mass/volume)Ordered By: Frederic Walters on 12-11-2022 Bilirubin.indirect [Mass/Vol] 0.9 mg/dL [facility] Sodium [Moles/volume] in Ser um or PlasmaOrdered By: Frederic Walters on 12-11-2022 Sodium [Moles/Vol] 138 mmol/L 136-145 [facility] Urea nitrogen [Mass/volume] in Serum or PlasmaOrdered By: Frederic Walters on 12-11-2022 Urea nitrogen [Mass/Vol] 14 mg/dL 7-[address] [facility] WBC Auto (Bld) [#/Vol]Ordere d By: Frederic Walters on 12-11-2022 WBC (Bld) [#/Vol] 4.0 10*3/uL 3.8-11.6 [facility] Screening Mammogram, Shefali noemy 06-22-2022 Screening Mammogram, Bilateral EXAMINATION: Screening Mammogram CLINICAL HISTORY: Unremarkable. COMPARISON: Dating back to 09/02/2019 TECHNIQUE: 2D and 3D Tomosynthesis of the right and left breasts was performed. FINDINGS: The breast parenchyma is heterogeneously dense bilaterally, which may obscure a small mass. There are no areas of suspicious microcalcifications or areas of architectural distortion identified. No evidence of skin thickening. There are stable areas of asymmetric density present. No suspicious mass right breast. Left breast: Asymmetric density within the lateral breast on craniocaudal view at 8 cm from the nipple. Recommend additional spot compression view and possible sonogram. IMPRESSION: LEFT BREAST: BIRADS 0 : ADDITIONAL IMAGING EVALUATION NEEDED. RIGHT BREAST: BIRADS 2 : BENIGN FINDINGS, NORMAL INTERVAL FOLLOW UP. MAMMOGRAPHY IS VERY IMPORTANT TO YOUR HEALTH. THE CURRENT [place] GUIDELINES RECOMMEND ANNUAL MAMMOGRAPHY BEGINNING AT AGE 40. THIS FACILITY UTILIZES A REMINDER SYSTEM TO ENSURE ALL PATIENTS RECEIVE A REMINDER NOTIFICATION AT THE APPROPRIATE TIME BASED ON THE RECOMMENDATIONS OF THIS EXAM. BOARD CERTIFIED RADIOLOGIST. ACCREDITED BY THE [facility] AND FDA. Report reported and signed by Angeles Mack on 06/22/2022 0906 Normal [facility] Complete Blood Count with Au to Diffon 02-15-2022 Basophils (Bld) [#/Vol] 0.04 10*3/uL Normal 0.00-0.20 [facility] Comment on above: Performed By: #### C BCAD, TSH reflex FT4, FT4 #### [facility] [address] [place], [place] [id number] Basophils/100 WBC (Bld) 0.9 % Normal [facility] Comment on above: Performed By: #### C BCAD, TSH reflex FT4, FT4 #### [facility] [address] [place], [place] [id number] Eosinophils (Bld) [#/Vol] 0.11 10*3/uL Normal 0.02-0.50 [facility] Comment on above: Performed By: #### C BCAD, TSH reflex FT4, FT4 #### [facility] [address] [place], [place] [id number] Eosinophils/100 WBC (Bld) 2.4 % Normal [facility] Comment on above: Performed By: #### C BCAD, TSH reflex FT4, FT4 #### [facility] [address] [place], [place] [id number] Erythrocyte distribution width (RBC) [Ratio] 12.9 % Normal 11.0-15.0 [facility] Comment on above: Performed By: #### C BCAD, TSH reflex FT4, FT4 #### [facility] [address] [place], [place] [id number] Hematocrit (Bld) [Volume fraction] 40.5 % Normal 35.0-47.0 [facility] Comment on above: Performed By: #### C BCAD, TSH reflex FT4, FT4 #### [facility] [address] [place], [place] [id number] Hemoglobin (Bld) [Mass/Vol] 12.8 g/dL Normal 11.6-15.5 [facility] Comment on above: Performed By: #### C BCAD, TSH reflex FT4, FT4 #### [facility] [address] [place], [place] [id number] Lymphocytes (Bld) [#/Vol] 1.4 10*3/uL Normal 0.9-3.9 [facility] Comment on above: Performed By: #### C BCAD, TSH reflex FT4, FT4 #### [facility] [address] [place], [place] [id number] Lymphocytes/100 WBC (Bld) 31.1 % Normal [facility] Comment on above: Performed By: #### C BCAD, TSH reflex FT4, FT4 #### [facility] [address] [place], [place] [id number] MCH (RBC) [Entitic mass] 27.8 pg Normal 27.0-33.0 [facility] Comment on above: Performed By: #### C BCAD, TSH reflex FT4, FT4 #### [facility] [address] [place], [place] [id number] MCHC (RBC) [Mass/Vol] 31.6 g/dL Low 32.0-36.[address] [facility] Comment on above: Performed By: #### C BCAD, TSH reflex FT4, FT4 #### [facility] [address] [place], [place] [id number] MCV (RBC) [Entitic vol] 88 fL Normal 80-100 [facility] Comment on above: Performed By: #### C BCAD, TSH reflex FT4, FT4 #### [facility] [address] [place], [place] [id number] Monocytes (Bld) [#/Vol] 0.5 10*3/uL Normal 0.2-0.9 [facility] Comment on above: Performed By: #### C BCAD, TSH reflex FT4, FT4 #### [facility] [address] [place], [place] [id number] Monocytes/100 WBC (Bld) 11.7 % Normal [facility] Comment on above: Performed By: #### C BCAD, TSH reflex FT4, FT4 #### [facility] [address] [place], [place] [id number] Neutrophils (Bld) [#/Vol] 2.4 10*3/uL Normal 1.5-7.8 [facility] Comment on above: Performed By: #### C BCAD, TSH reflex FT4, FT4 #### [facility] [address] [place], [place] [id number] Neutrophils/100 WBC (Bld) 53.7 % Normal [facility] Comment on above: Performed By: #### C BCAD, TSH reflex FT4, FT4 #### [facility] [address] [place], [place] [id number] Platelet mean volume (Bld) [Entitic vol] 9.60 fL Normal 7.50-12.50 [facility] Comment on above: Performed By: #### C BCAD, TSH reflex FT4, FT4 #### [facility] [address] [place], [place] [id number] Platelets (Bld) [#/Vol] 275 10*3/uL Normal 140-400 [facility] Comment on above: Performed By: #### C BCAD, TSH reflex FT4, FT4 #### [facility] [address] [place], [place] [id number] RBC (Bld) [#/Vol] 4.60 10*6/uL Normal 3.90-5.20 [facility] [place] [facility] Comment on above: Performed By: #### C BCAD, TSH reflex FT4, FT4 #### [facility] [address] [place], [place] [id number] RDW-SD 41.8 fL Normal 37.0-50.0 [facility] [place] [facility] Comment on above: Performed By: #### C BCAD, TSH reflex FT4, FT4 #### [facility] [address] [place], [place] [id number] WBC (Bld) [#/Vol] 4.5 10*3/uL Normal 3.8-11.0 [facility] [place] [facility] Comment on above: Performed By: #### C BCAD, TSH reflex FT4, FT4 #### [facility] [address] [place], [place] [id number] Free T4on 02-15-2022 Free T4 [Mass/Vol] 1.19 ng/dL Normal 0.80-1.80 [facility] [place] [facility] Comment on above: Performed By: #### C BCAD, TSH reflex FT4, FT4 #### [facility] [address] [place], [place] [id number] TSH w/ Reflex to Free T4on 0 02-15-2022 FT4 reflex Free T4 Normal [facility] Comment on above: Performed By: #### C BCAD, TSH reflex FT4, FT4 #### [facility] [address] [place], [place] [id number] TSH 11.930 uIU/mL High 0.400-4.500 [facility] [place] [facility] Comment on above: Performed By: #### C BCAD, TSH reflex FT4, FT4 #### [facility] [address] [place], [place] [id number] Vital Signs Date Time Vital Sign Value Performing Clinician Facility 11-05-2023 14:36-0500 Body mass index (BMI) [Ratio] 25.18 kg/m2 Tatiana Moffett [employer] Work Phone: [facility] 11-05-2023 14:36-0500 Body weight 70.76 kg Tatiana Moffett DO Work Phone: [facility] 11-05-2023 14:36-0500 Diastolic blood pressure 68 mm[Hg] Tatiana Moffett DO Work Phone: [facility] 11-05-2023 14:36-0500 Systolic blood pressure 112 mm[Hg] Tatiana Moffett DO Work Phone: [facility] 10-18-2023 13:13-0500 Diastolic blood pressure 56 mm[Hg] MD Valarie Segundo Work Phone: [facility] 10-18-2023 13:13-0500 Heart rate 61 /min MD Valarie Segundo Work Phone: [facility] 10-18-2023 13:13-0500 Systolic blood pressure 101 mm[Hg] MD Valarie Segundo Work Phone: [facility] 10-18-2023 12:25-0500 SaO2% (BldA) [Mass fraction] 100 % MD Valarie Segundo Work Phone: [facility] 10-18-2023 10:23-0500 Body temperature 98.8 [degF] MD Valarie Segundo Work Phone: [facility] 10-18-2023 10:23-0500 Respiratory rate 16 /min MD Valarie Segundo Work Phone: [facility] 10-18-2023 09:06-0500 Inhaled oxygen flow rate 10 L/min MD Valarie Segundo Work Phone: [facility] 10-18-2023 07:08-0500 Body height 167.64 cm MD Valarie Segundo Work Phone: [facility] 10-18-2023 07:08-0500 Body mass index (BMI) [Ratio] 25.6 kg/m2 MD Valarie Segundo Work Phone: [facility] 10-18-2023 07:08-0500 Body weight 72 kg MD Valarie Segundo Work Phone: [facility] 12-11-2022 16:38-0400 Diastolic blood pressure 59 mm[Hg] MD Valarie Segundo Work Phone: [facility] 12-11-2022 16:38-0400 Heart rate 60 /min MD Valarie Segundo Work Phone: [facility] 12-11-2022 16:38-0400 Respiratory rate 20 /min MD Valarie Segundo Work Phone: [facility] 12-11-2022 16:38-0400 SaO2% (BldA) [Mass fraction] 100 % MD Valarie Segundo Work Phone: [facility] 12-11-2022 16:38-0400 Systolic blood pressure 113 mm[Hg] MD Valarie Segundo Work Phone: [facility] 12-11-2022 15:47-0400 Body height 167.64 cm MD Vaalrie Segundo Work Phone: [facility] 12-11-2022 15:47-0400 Body weight 72.5 kg MD Valarie Segundo Work Phone: [facility] 12-11-2022 14:50-0400 Body temperature 98.2 [degF] MD Valarie Segundo Work Phone: [facility] Encounters Encounter Date Encounter Type Care Provider Facility Start: 08-05-2024 End: 08-05-2024 ambulatory VALARIE SEGUNDO Not Available Start: 06-23-2024 End: 06-23-2024 ambulatory TATIANA MOFFETT Not Available Start: 12-04-2023 End: 12-04-2023 ambulatory TATIANA MOFFETT Not Available Start: 11-05-2023 End: 11-05-2023 Postop follow up visit related to original px Tatiana Moffett DO Work Phone: [facility] Comment on above: Aftercare following surgery Start: 11-05-2023 End: 11-05-2023 ambulatory TATIANA MOFFETT Not Available Start: 10-18-2023 End: 10-18-2023 ambulatory Tatiana Moffett Facility:[facility] Start: 10-18-2023 End: 10-18-2023 Admission to same day surgery center MD Valarie Segundo Work Phone: [facility] [place] Start: 10-18-2023 End: 10-18-2023 ambulatory MD Valarie Segundo Work Phone: [facility] Work Phone: Start: 10-04-2023 End: 10-04-2023 ambulatory Tatiana Moffett Facility:[facility] Start: 10-04-2023 End: 10-04-2023 ambulatory MD Valarie Segundo Work Phone: [facility] Work Phone: Start: 10-04-2023 End: 10-04-2023 Patient encounter procedure MD Valarie Segundo Work Phone: [facility] Work Phone: Start: 12-11-2022 End: 12-11-2022 Emergency department patient visit Valarie Segundo Facility:[facility] Start: 12-11-2022 End: 12-11-2022 Emergency department patient visit MD Valarie Segundo Work Phone: [facility] Work Phone: Procedures Date Procedure Procedure Detail Performing Clinician Start: 10-18-2023 Total hysterectomy v ia vaginal approach MD Valarie Segundo Work Phone: Start: 10-04-2023 Antibody screen Valarie mancia Comment on above: Order Comment: Date of Surgery: [id number] Result Comment: PERF ORMED BY: [facility] [address] [place] [id number] PATHOLOGIST ELECTRONICS TECHNICIAN APPRENTICE BIRGIT BAER M.D. Start: 07-23-2023 Mammography Tatiana larsen DO Work Phone: Plan of Treatment Date Care Activity Detail Author Start: 07-23-2024 Screening for malign ant neoplasm of breast Mammogram [facility] Start: 06-23-2024 End: 06-23-2024 Patient encounter procedure 06/23/2024 10:15 AM EDT Office Visit [facility] [address] [place] [phone] Tatiana Moffett, DO [address] [place] [address] [facility] Start: 12-04-2023 End: 12-04-2023 Patient encounter procedure 12/04/2023 9:30 AM EDT Office Visit [facility] [address] [place] [phone] Tatiana Moffett, DO [address] [place] [address] [facility] Start: 10-18-[address] [facility] Start: 10-18-2023 Hospital admission [facility] Start: 05-25-2023 Influenza vaccination Influenza Vacc ine (#1) [facility] Patient Education Diarrhea, Adul t ED Nausea and Vomiting, Adult ED [facility] Work Phone: Patient referral [facility] Work Phone: Immunizations Immunization Date Immunization Notes Care Provider Fa cili 06-13-2022 influenza, injectabl e, quadrivalent, preservative free Tatiana Moffett DO Work Phone: [facility] 06-13-2022 influenza virus vaccine, unspecified formulation Tatiana Moffett DO Work Phone: [facility] 08-22-2021 COVID-19 mRNA Comirferny (Pfizer) MD Valarie Segundo Work Phone: [facility] 02-17-2021 COVID-19 mRNA Comirferny (Pfizer) MD Valarie Segundo Work Phone: [facility] 01-25-2021 COVID-19 Tia Rivera (Pfizer) MD Valarie Segundo Work Phone: [facility] 06-11-2020 seasonal influenza, intradermal, preservative free Tatiana Moffett DO Work Phone: [facility] 06-17-2015 seasonal influenza, intradermal, preservative free Tatiana Moffett DO Work Phone: [facility] 08-04-2010 seasonal influenza, intradermal, preservative free Tatiana Moffett DO Work Phone: [facility] 07-31-2009 novel [id number], preservative-free, injectable Tatiana Moffett DO Work Phone: [facility] 08-27-2003 varicella virus vaccine Tatiana Moffett DO Work Phone: [facility] 06-10-2002 diphtheria, tetanus toxoids and acellular pertussis vaccine Tatiana Moffett DO Work Phone: [facility] 06-10-2002 haemophilus influenz ae type b vaccine, HbOC conjugate Tatiana Moffett DO Work Phone: [facility] 06-10-2002 hepatitis B vaccine, pediatric or pediatric/adolescent dosage Tatiana Moffett DO Work Phone: [facility] 06-10-2002 measles, mumps and rubella virus vaccine Tatiana Moffett DO Work Phone: [facility] 06-10-2002 poliovirus vaccine, inactivated Tatiana Moffett DO Work Phone: [facility] 09-11-2001 diphtheria, tetanus toxoids and acellular pertussis vaccine Tatiana Moffett DO Work Phone: [facility] 09-11-2001 haemophilus influenz ae type b vaccine, HbOC conjugate Tatiana Moffett DO Work Phone: [facility] 09-11-2001 pneumococcal conjuga te vaccine, 7 valent Tatiana Moffett DO Work Phone: [facility] 07-10-2001 diphtheria, tetanus toxoids and acellular pertussis vaccine Tatiana Moffett DO Work Phone: [facility] 07-10-2001 haemophilus influenz ae type b vaccine, HbOC conjugate Tatiana Moffett DO Work Phone: [facility] 07-10-2001 pneumococcal conjuga te vaccine, 7 valent Tatiana Moffett DO Work Phone: [facility] 07-10-2001 poliovirus vaccine, inactivated Tatiana Moffett DO Work Phone: [facility] 05-01-2001 diphtheria, tetanus toxoids and acellular pertussis vaccine Tatiana Rita DO Work Phone: [facility] 05-01-2001 haemophilus influenz ae type b vaccine, HbOC conjugate [facility] DO Work Phone: [facility] 05-01-2001 pneumococcal conjuga te vaccine, 7 valent Tatiana Moffett DO Work Phone: [facility] 05-01-2001 poliovirus vaccine, inactivated Tatiana Moffett DO Work Phone: [facility] 04-03-2001 hepatitis B vaccine, pediatric or pediatric/adolescent dosage Tatiana Rita DO Work Phone: [facility] 02-28-2001 hepatitis B vaccine, pediatric or pediatric/adolescent dosage Tatiana Pettyer DO Work Phone: [facility] Payers Date Payer Category Payer Private Health Insurance [id number] 2022 Self-pay [id number] 2022 Private Health Insurance RICHARD MONDRAGON [id number] 2022-Present [address] [place] [address] [id number] 2022 Private Health Insurance [id number] 1980 Unknown [id number] 1979 Unknown [id number] 1979 Unknown [id number] 1979 Unknown [id number] Self-pay Self Pay [employer] Program [id number] Unknown Elsie BC/ [id number] Unknown [id number] Unknown [id number] Unknown [id number] Social History Date Type Detail Facility Start: 12-11-2022 End: 06-18-2023 Tobacco smoking status GAIS Never smoked tobacco (finding) [facility] Start: 1980 Sex Assigned At Female [facility] Start: 06-18-2023 Tobacco use and exposure Smokeless tobacco non-user [facility] Start: 11-05-2023 Alcohol intake Current drinker of alcohol (finding) [facility] Start: 05-29-2023 End: 11-05-2023 Alcohol intake [facility] Start: 05-29-2023 End: 06-19-2023 Humiliation, Afraid, Rape, and Kick questionnaire [HARK] [facility] Within the last year , have you been afraid of your partner or ex-partner? No [facility] Do you belong to any clubs or organizations such as nondenominational groups, unions, fraternal or athletic groups, or school groups? Yes [facility] Are you now , , , , never or living with a partner? [facility] How often to you hav e a drink containing alcohol? 2-4 times a month [facility] How many standard dr inks containing alcohol do you have on a typical day? 1 or 2 [facility] How often do you hav e 6 or more drinks on 1 occasion? Never [facility] How hard is it for y ou to pay for the very basics like food, housing, medical care, and heating Not hard at all [facility] Do you feel stress - tense, restless, nervous, or anxious, or unable to sleep at night because your mind is troubled all the time - these days [OSQ] To some extent [facility] (I/We) worried wheth er (my/our) food would run out before (I/we) got money to buy more. Never true [facility] Start: 05-29-2023 Alcohol Comment caffeine: 1-2 cups per day coffee, soda [facility] Start: 12-06-2022 Gender identity Identifies as female gender (finding) [facility] Start: 04-24-2023 Sexual orientation Heterosexual (finding) [facility] Healthcare Goals Date Patient Goal Desired Activity /State History of Present illness Narrative 11-05-2023 Aria Menezes MA - 11/05/2023 2:30 PM EST Note Date & Type Note Facility 11-05-2023 History of Presen t illness Narrative Images from the original note were not included. Tatiana Moffett DO Obstetrics and Gynecology Patient: Phyllis Larose : 1980 (43 y.o.) Post Operative visit Date: 11/05/2023 Chief Complaint Patient presents with Post-op Visit 10-18-23 [facility] BS, cauterization of pelvic endometriosis 18 days Denies PO concerns. Visit Vitals BP 112/68 Wt 156 lb LMP 06/28/2023 BMI 25.18 kg/m OB Status Hysterectomy Smoking Status Never BSA 1.82 m History of Present Illness, Associated Treatments and Results - Postoperative Follow-up Patient is a 43 y.o. year old who presents to the clinic 18 days status post laparoscopic assisted vaginal hysterectomy . Eating a regular diet without difficulty. Bowel movements are normal. The patient is not having any pain. Patient denies swelling, redness, or discharge from her incision. OB History Para Term AB Living 2 2 0 0 0 2 SAB IAB Ectopic Multiple Live Births 0 0 0 0 2 # Outcome Date GA Lbr Demetris/2nd Weight Sex Delivery Anes PTL Lv 2 Para 6 lb 15 oz CS-Unspec 1 Para 6 lb 12 oz CS-Unspec Review of Systems -see HPI Medication Documentation Review Audit Reviewed by Dary Alvarez MA (Cargo Vessel Stewardess) on 11/05/23 at 1437 Medication Order Taking? Sig Documenting Provider Last Dose Status levothyroxine (Synthroid, Levoxyl) 125 MCG tablet [id number] TAKE 1 TABLET BY MOUTH IN THE MORNING ON AN EMPTY STOMACH ON SUNDAY, SUNDAY, SUNDAY AND SUNDAY Valarie Segundo MD Active levothyroxine (Synthroid, Levoxyl) 137 MCG tablet [id number] TAKE 1 TABLET BY MOUTH ON AN EMPTY STOMACH EVERY MORNING ON SUNDAY, SUNDAY AND SUNDAY Valarie Segundo MD Active Multiple Vitamin (multivitamin) capsule [id number] Take 1 capsule by mouth in the morning. Historical Provider, Active Discontinued 11/05/23 1437 Past Medical History: Diagnosis Date Ankylosing spondylitis (CMS/HCC) 2014 Exercise-induced asthma (CMS/HCC) ok now Hypothyroidism (CMS/HCC) Postoperative abdominal pain 11/05/2023 2007, 2009 Varicella zoster Past Surgical History: Procedure Laterality Date BASAL CELL CARCINOMA EXCISION 12/2020 removed from back SECTION, LOW TRANSVERSE 2007 0 hr labor SECTION, LOW TRANSVERSE 2009 HYSTERECTOMY 10/17/2023 [facility] BS, cauterization of pelvic endometriosis SKIN BIOPSY 06/2019 Family History Problem Relation Name Age of Onset Rheum arthritis Mother Elisa Pennington Thyroid disease Mother Elisa Pennington Atrial fibrillation Father Vaginal cancer Maternal Grandmother Other (lichen sclerosis) Maternal Grandmother Physical Exam - General appearance, mentation, extraocular movements, facial strength and movement, hearing, upper and lower extremity strength and tone, sensation to gross testing, coordination, and gait are normal or at baseline unless noted below. Heart: regular rate and rhythm Lungs: b/l clear Abdomin: no sign of infection, healing well Female genitalia: Commercial Lending Relationship Manager in room, no evidence of infection, cuff well supported, normal induration, suture line in tact, cul de sac clear, no hematoma Assessment/Plan Doing well postoperatively. Operative findings again reviewed. Pathology report discussed. 1. Continue any current medications. 2. Wound care discussed. 3. Activity restrictions: Gradually increase activity. No vaginal penetration until next OV. No heavy lifting. Going to [place] tomorrow- walking is okay. 4. Anticipated return to work: now. 5. Follow up: 4 weeks ICD-10-CM 1. Aftercare following surgery Z48.89 Entered by Aria Menezes MA acting as scribe for Dr. Tatiana Moffett. Signature Aria Menezes MA Date 11/05/23 . Time 2:57 PM . The documentation recorded by the scribe accurately reflects the service(s) I personally performed and the decisions I made. Signature Zoey Moffett D.O. Date 11/05/23 Time 5:00PM. documented in this encounter [facility] Evaluation note Note Date & Type Note Facility Evaluation note No assessment information [facility] Work Phone: Evaluation note Note Date & Type Note Facility Evaluation note Diagnosis Aftercare following surgery Encounter for other specified aftercare documented in this encounter [facility] Discharge instructions Note Date & Type Note Facility Hospital Discharge instructions Additional Instructions DISCHARGE INSTRUCTIONS FOR HYSTERECTOMY ([facility], [facility], [facility]) -During your time at home until your first office appointment we recommend that you assume the same type of activities that you have been doing while in the hospital. You may ride in the car unless otherwise specifically told not to. Unless specifically otherwise stated, generally you may drive the car when you feel strong enough to make emergency manuevers as needed. -You may walk up and down stairs. At first take one step at a time -- one step - stop, one step - stop, one step - stop. -You may do light housework, such as dusting, dishes, and cooking. -From your first office visit until the six week postoperative examination we recommend that you do not do any heavy lifting or straining, that you do not do any vacuuming, mopping, or sweeping. -We advise that you do not lift any heavy grocery bags from the cart to the car or from the car home. -We recommend that you do not do any yard work such as shoveling of snow, raking of leaves, cutting grass or gardening. -We recommend that you do not make beds or lift mattresses to change fitted sheets. -Light bleeding is normal for the first 4 weeks (i.e. changing panty liner 3 - 4 times a day.) Call me or go to the Emergency Room for heavy bleeding (soaking a maxipad every hour for 4 hours.) -Call the office or go to the Emergency Room if unable to reach me for fever, chills, worsening pain, persistent nausea/vomiting. -Call the office or go to the Emergency Room for shortness of breath, pain in your calfs or unusual swelling in your legs. -Showers are allowed until the vaginal drainage stops, then tub baths are generally acceptable unless otherwise specifically denied. -You will be advised at your first office visit when you may resume intercourse. This will be dependent upon the type of surgery performed. -We recommend that you use home remedies such as aspirin, Tylenol, Motrin for pain, Milk of Magnesia for laxative. If these preparations do not take care of your problem we want to be called and notified of your distress. -Please get prescriptions filled upon leaving the hospital and follow directions as outlined. Please note the refill limitations on the prescription. -If you have any specific questions not covered by these instructions please feel free to contact myself or one of the nurses who will answer your questions with my recommendations. -These instructions are intended to be a guideline for your postoperative care and recovery and are by no means intended to be totally complete. FOLLOW UP -[Please call the office at ([phone]) to make follow appointment before leaving the hospital]. -[2 Weeks] [ ] [facility] Work Phone: Summary Purpose Family History No Family History Records Found Relationship Condition Age at Onset Recorded Date/T manuel daughter Diabetes mellitus Unknown Not Specified Rheumatoid arthritis Unknown Not Specified Hypothyroidism Unknown father Atrial fibrillation Unknown Advance Directives No Advanced Directives Records Found Advance Directive Response Recorded Date/ Time Advance Directives No December 11 023 3:46pm Advance Directive Response Recorded Date/ Time Advance Directives No December 11 023 2:46pm Chief Complaint and Reason for Visit Chief Complaint Nausea, Vomiting, Di arrhea Chief Complaint Menorrhagia Chief Complaint Menorrhagia Menorrhagia. Additional Source Comments INFORMATION SOURCE (unrecogn ized section and content) DATE CREATED AUTHOR 06/26/2022 [facility] d[facility] Specialist DATE CREATED AUTHOR AUTHOR'S ORGANIZ ATION 11/25/2023 [facility] DATE CREATED AUTHOR AUTHOR'S ORGANIZ ATION 08/07/2024 [facility] dical Specialists EPIC Care Teams (unrecognized sec tion and content) Team Status: Active Member Role Status Dates Valarie Segundo MD Primary Care Provider Active Team Status: Inactive Member Role Status Dates Valarie Segundo MD Primary Care Provider Active Frederic Walters MD Emergency Provider Active Team Status: Inactive Member Role Status Dates Valarie Segundo MD Primary Care Provider Active Tatiana Moffett DO Attending Provider Active Team Status: Inactive Member Role Status Dates Valarie Segundo MD Primary Care Provider Active Start: October 04, 2023 End: October 04, 2023 Tatiana Moffett DO Attending Provider Active Start: October 04, 2023 End: October 04, 2023 Team Status: Inactive Member Role Status Dates Valarie Segundo MD Primary Care Provider Active Start: October 18, 2023 End: October 18, 2023 Tatiana Moffett DO Attending Provider Active Start: October 18, 2023 End: October 18, 2023 [employer] Relationship Specialty Start Date End Date Valarie Segundo MD [address] [place] [address] PCP - General Family Medicine 01/30/23 Goals (unrecognized section and content) Goals may be documented in a n alternate sectionGoals may be documented in an alternate section Reason for Visit (unrecogniz ed section and content) Reason Comments Post-op Visit 10-18-23 [facility] BS, caut erization of pelvic [id number] daysDenies PO concerns. FOR RECORDS PERTAINING TO PATIENTS WHO ARE OR HAVE BEEN ENROLLED IN A CHEMICAL DEPENDENCY/SUBSTANCEABUSE PROGRAM, SOME INFORMATION MAY BE OMITTED. This clinical summary was aggregated from multiple sources. Caution should be exercised in using it in the provision of clinical care. This summary normalizes information from multiple sources, and as a consequence, information in this document may materially change the coding, format and clinical context of patient data. In addition, data may be omitted in some cases. CLINICAL DECISIONS SHOULD BE BASED ON THE PRIMARY CLINICAL RECORDS. [employer] provides no warranty or guarantee of the accuracy or completeness of information in this document.
== END 2024-08-11 07:37 | disposition home or self-care (01) ==
LOC: MRI 07:36
PROVIDERS: PCP Family Medicine; Visit Provider Family Medicine
DX: M53.3 Sacrococcygeal disorders, not elsewhere classified (principal); M54.50 Low back pain, unspecified
CPT/HCPCS: 72148